=== PATIENT | male | born 1950 | race Caucasian/White ===

== ENCOUNTER 2016-08-26 18:30 | Emergency (ER) | payer MEDICAID ==
[~2016-08-26] VITALS: Ht 177.8 cm; Wt 125.0 kg
[2016-08-26 18:31] VITALS: BP 163/83; PULSE 78; RESP 14; TEMP 98.4; O2SAT 98
--- NOTE | 2016-08-26 20:00 | PD ---
HPI Chief Complaint: Injury Time Seen by Provider: 19:56 Travel History International Travel<30 days: No Contact w/Intl Traveler<30days: No Traveled to known affect area: No History of Present Illness HPI Patient comes in complaining of left knee pain ongoing for approximately a week after losing his balance and falling on and twisting his left knee. Denies hitting his head or loss of consciousness. Patient denies being evaluated for this previously. Pain is worse with flexing his left knee. Pain is primarily anterior aspect and radiates throughout his knee. Patient has been taking his Percocet along with Advil and trying to rest. Denies any numbness or tingling. Patient is on Xarelto for A. fib. Patient reports he has MS and has been out of his medication for approximately 2 months and believes this is what may have caused him to lose his balance. Patient reports he started using his cane again keep from falling secondary to his knee. PFSH Past Medical History Hx Anticoagulant Therapy: Yes (Xarelto) Atrial Fibrillation: Yes Cardiovascular Problems: Yes ([place] 2004) Social History Alcohol Use: No Tobacco Use: No Substance Use: No Allergies-Medications (Allergen,Severity, Reaction): Coded Allergies: No Known Allergies (Unverified , 08/26/16) Review of Systems Except as stated in HPI: all other systems reviewed are Neg Physical Exam Narrative GENERAL: Well-developed, overly nourished, in no acute distress, and non-ill appearing. SKIN: Warm and dry. HEAD: Atraumatic. Normocephalic. EYES: Pupils equal and round. EOMI. No scleral icterus. No injection or drainage. ENT: No nasal bleeding or discharge. Mucous membranes pink and moist. NECK: Trachea midline. Supple. No nuclear rigidity. CARDIOVASCULAR: Dorsal pulses 2+ intact and equal bilaterally. Capillary refill less than 2 seconds. RESPIRATORY: No accessory muscle use. No respiratory distress. MUSCULOSKELETAL: No obvious deformities. No clubbing. No cyanosis. No edema. Full range of motion. Knee: Negative patellar apprehension, varus and valgus maneuvers, anterior draw test, and Derek test. Pulses equal BL distal to injury. Capillary refill less than 2 seconds distal to injury and equal BL. FROM distal to injury and equal BL. Strength distal to injury equal BL. NV intact distal to injury. Dorsal pulses equal BL. Patient reports tenderness to palpation over left knee superior aspect of the patella reports increased pain with passive flexion. Is afebrile and nonerythematous. NEUROLOGICAL: Awake and alert. No obvious cranial nerve deficits. Motor grossly within normal limits. Normal speech. PSYCHIATRIC: Appropriate mood and affect; insight and judgment normal. Data Data Last Documented VS Vital Signs Date Time Temp Pulse Resp B/P Pulse Ox O2 Delivery O2 Flow Rate FiO2 08/26/16 20:10 Room Air 08/26/16 18:31 98.4 78 14 163/83 98 Orders Knee, Complete (4vws) (08/26/16 ) Splint Or Brace Apply/Monitor (08/26/16 20:32) Immobilizer Knee 20 Inch (08/26/16 ) [facility] Medical Decision Making Medical Screen Exam Complete: Yes Emergency Medical Condition: Yes Differential Diagnosis Fracture, sprain, contusion, other Narrative Course There is no clinical evidence to suspect bony injury by exam. Radiographic examination revealed no fracture seen at this time. No obvious ligamental injury or obvious internal derangement is noted at this time. The anterior, posterior, lateral and medial collateral ligaments are intact and symmetrical. The distal extremity appears neurovascularly intact, without evidence of neurovascular injury nor compartment syndrome. Tendon exam also was intact. The effected limb was immobilized. The patient was discharged with sprain and splint care instructions and given warnings for vascular compromise. The patient is to follow up with Orthopedics. The patient agrees with plan. Patient in no obvious distress upon re-evaluation. All pertinent Radiology result(s) discussed with patient/family. Any questions/concerns in reference to patient diagnosis/condition discussed and clarified prior to patient's discharge. Reinforced sheer importance of close follow up with patient's orthopedic. Instructed patient to return to ED immediately, if symptoms return/ worsen. Pt showed understanding of above instructions. Further instructions and recommendations were detailed in discharge paperwork. Pt ambulated without difficulty out of ED at discharge. Diagnosis Primary Impression: Left knee sprain Qualified Code: S83.92XA - Sprain of left knee, unspecified ligament, initial encounter Patient Instructions: General Instructions, Knee Immobilizer (ED), Knee Sprain (ED) Additional Instructions: Follow-up with your orthopedic doctor in 2-3 days for reevaluation. Take your pain medication as prescribed. Apply ice affected area 20 minutes per hour as needed for pain. If you have difficulty walking with a knee immobilizer and your cane obtain a walker [id number] to use with the knee immobilizer. Use the knee immobilizer while awake until reevaluated by your orthopedic doctor Return to the emergency department if symptoms get worse. Disposition: 01 DISCHARGE HOME Condition: Zay Deras Aug 26, 2016 20:00
--- NOTE | 2016-08-26 20:21 | RADRPT ---
EXAM DATE/TIME: 08/26/2016 20:04 [facility] COMPARISON: No previous studies available for comparison. INDICATIONS : Generalized Left Knee Pain after fall. MEDICAL HISTORY : None. SURGICAL HISTORY : None. ENCOUNTER: Initial ACUITY: 1 day PAIN SCORE: 5/10 LOCATION: Left Knee. FINDINGS: Four view examination of the left knee demonstrates no evidence of fracture or dislocation. Bony min eralization is normal. The articular surfaces are intact. The suprapatellar soft tissues have a nor mal configuration. CONCLUSION: Intact left knee. James Nation MD on August 26, 2016 at 20:19 Board Certified Radiologist. This report was verified electronically.
== END 2016-08-26 21:00 | disposition home or self-care (01) ==
LOC: NETRI 18:30
DX: S83.92XA Sprain of unspecified site of left knee, initial encounter (principal); Z79.01 Long term (current) use of anticoagulants; I48.91 Unspecified atrial fibrillation; I25.2 Old myocardial infarction; W19.XXXA Unspecified fall, initial encounter; Y99.8 Other external cause status
CPT/HCPCS: 73564; 99283; L1830